=== PATIENT | female | born 1935 | race Hispanic/Latino ===

== ENCOUNTER 2017-07-20 22:36 | Emergency (ER) | payer SELFPAY ==
--- NOTE | 2017-07-20 23:13 | ED PDOC ---
HPI: Psych/Substance Abuse Time Seen by Provider: 07/20/17 22:44 Chief Complaint (Nursing): Psychiatric Evaluation Chief Complaint (Provider): Psychiatric Evaluation History Per: Patient, EMS History/Exam Limitations: no limitations Onset/Duration Of Symptoms: Mins (prior to arrival ) Current Symptoms Are (Timing): Still Present Additional Complaint(s): 81 year old female was brought in by EMS for psychiatric evaluation, onset minutes prior to arrival. Patient was sent from [facility] after she was found smoking in her room. She then tried to hide herself in the bathroom and had to be forcibly extricated by EMS. Patient refuses to talk about the incident and currently has no complaints. PMD: Dr. Stone Moses MD Past Medical History Reviewed: Historical Data, Nursing Documentation, Vital Signs Vital Signs: Last Vital Signs Temp 98.0 F 07/20/17 22:40 Pulse 96 H 07/20/17 22:40 Resp 16 07/20/17 22:40 BP 164/94 H 07/20/17 22:40 Pulse Ox 100 07/20/17 22:40 - Medical History PMH: No Chronic Diseases - Surgical History Surgical History: No Surg Hx - Family History Family History: States: Unknown Family Hx - Home Medications Home Medications: Ambulatory Orders Medication Instructions Recorded Ciprofloxacin [Cipro] 500 mg PO BID 5 Days tab 07/21/17 - Allergies Allergies/Adverse Reactions: Allergies Allergy/AdvReac Type Severity Reaction Status Date / Time cortisone Allergy RASH Verified 07/20/17 22:43 mustard Allergy RASH Uncoded 07/20/17 22:43 Review of Systems ROS Statement: Except As Marked, All Systems Reviewed And Found Negative Physical Exam - Reviewed Nursing Documentation Reviewed: Yes Vital Signs Reviewed: Yes - Physical Exam Appears: Positive for: Non-toxic, No Acute Distress Head Exam: Positive for: ATRAUMATIC, NORMOCEPHALIC Skin: Positive for: Normal Color, Warm, Dry Eye Exam: Positive for: EOMI, Normal appearance, PERRL Neck: Positive for: Normal, Painless ROM, Supple Cardiovascular/Chest: Positive for: Regular Rate, Rhythm. Negative for: Murmur Respiratory: Positive for: Normal Breath Sounds. Negative for: Respiratory Distress Gastrointestinal/Abdominal: Positive for: Normal Exam, Soft Back: Positive for: Normal Inspection Extremity: Positive for: Normal ROM. Negative for: Deformity Neurologic/Psych: Positive for: Alert, degree clerk II-XII (intact), Oriented (x 3). Negative for: Motor/Sensory Deficits, Cerebellar Tests - Laboratory Results Result Diagrams: 07/20/17 23:23 07/20/17 23:23 - ECG O2 Sat by Pulse Oximetry: 100 (RA) Pulse Ox Interpretation: Normal Medical Decision Making Medical Decision Making: Time: 22:53 Impression: adjustment disorder Initial Plan: --Acetaminophen --Alcohol serum --BMP --Urine drug --Salicylate --CBC with differentials --urinalysis --Cipro 500 mg PO Patient was cleared by crisis by Dr. Jim. Diagnosed with adjustment disorder. Patient requires no further treatment in the ED at this time. Will be discharged home. Return if symptoms persist or worsen. Scribe Attestation: Documented by Yasemin Myrick, acting as a scribe for Joshua Lambert MD. Provider Scribe Attestation: All medical record entries made by the Scribe were at my direction and personally dictated by me. I have reviewed the chart and agree that the record accurately reflects my personal performance of the history, physical exam, medical decision making, and the department course for this patient. I have also personally directed, reviewed, and agree with the discharge instructions and disposition. Disposition - Clinical Impression Clinical Impression: UTI (urinary tract infection), Adjustment disorder - Patient ED Disposition Is Patient to be Admitted: No - Disposition Referrals: Mary Vaughn [Outside] Disposition: Routine/Home Disposition Time: 00:46 Condition: IMPROVED Prescriptions: Ciprofloxacin [Cipro] 500 mg PO BID 5 Days tab Instructions: Urinary Tract Infection in Women (GEN), Mood Disorders (ED) Forms: LessThan3 (Filipino)
[2017-07-20 23:27] LABS: BASO # 0.1 K/uL (0.0-0.2); BASO % 1.2 % (0.0-2.0); EOS # 0.1 K/uL (0.0-0.7); EOS % 1.7 % (0.0-4.0); HEMOGLOBIN 13.1 g/dL (12.0-16.0); LYMPH # 1.5 K/uL (1.0-4.3); MEAN CELL VOLUME 99.8 fl (81.0-99.0); MEAN CORPUSCULAR HEMOGLOBIN 32.9 pg (27.0-31.0); MEAN PLATELET VOLUME 8.4 fl (7.2-11.7); MONO # 0.8 K/uL (0.0-0.8); MONO % 9.7 % (0.0-10.0); NEUT # 5.5 K/uL (1.8-7.0); NEUT % 68.4 % (50.0-75.0); NRBC % 0.1 % (0.0-0.0); RBC 3.99 Mil/uL (3.80-5.20); RED CELL DISTRIBUTION WIDTH 16.3 % (11.5-14.5)
[2017-07-20 23:38] LABS: ACETAMINOPHEN < 10.0 ug/ml (10.0-30.0); BLOOD UREA NITROGEN 32 mg/dl (7-17); CALCIUM 10.4 mg/dL (8.4-10.2); GFR AFRICAN-AMERICAN 40; GFR NON-AFRICAN AMERICAN 33; SALICYLATE < 1.0 mg/dl
[2017-07-20 23:46] LABS: SQUAMOUS EPITHIAL 3 /hpf (0-5); URINE BACTERIA FEW (<OCC); URINE BILIRUBIN NEGATIVE (NEGATIVE); URINE BLOOD SMALL (NEGATIVE); URINE CLARITY TURBID (Clear); URINE COLOR AMBER (YELLOW); URINE GLUCOSE (UA) NEG (Normal); URINE LEUKOCYTE ESTERASE LARGE Leu/uL (Negative); URINE NITRATE NEGATIVE (NEGATIVE); URINE PROTEIN 100 mg/dL (NEGATIVE); URINE UROBILINOGEN 0.2-1.0 mg/dL (0.2-1.0); WBC CLUMPS MANY /hpf
[2017-07-20 23:54] LABS: BARBITURATES, UR NEGATIVE (NEGATIVE); BENZODIAZEPINES, UR NEGATIVE (NEGATIVE); OPIATES, UR NEGATIVE (NEGATIVE); PHENCYCLIDINE, UR NEGATIVE (NEGATIVE)
[2017-07-21 03:07] VITALS: BP 160/90; PULSE 92; RESP 17; TEMP 98.2
[2017-07-21 04:47] VITALS: O2SAT 100
== END 2017-07-21 02:00 ==
LOC: EDBD → H.ER 22:36
DX: F43.20 Adjustment disorder, unspecified (principal); N39.0 Urinary tract infection, site not specified
CPT/HCPCS: 80048; 81003; 85025; 99283; G0480

== ENCOUNTER 2017-07-21 15:00 | Inpatient (IN) | payer MEDICARE ==
--- NOTE | 2017-07-21 15:34 | ED PDOC ---
HPI: General Adult Time Seen by Provider: 07/21/17 15:10 Chief Complaint (Nursing): Altered Mental Status Chief Complaint (Provider): Altered Mental Status History Per: Patient, EMS History/Exam Limitations: no limitations Onset/Duration Of Symptoms: Days (x today) Current Symptoms Are (Timing): Still Present Recently: Seen In ED Additional History Per: Prior Records Additional Complaint(s): Ms. Ratliff is an 81 year old female, with a past medical history of dementia and mood disorder, who presents to the emergency department via EMS for aggressive behavior non-complaint with medication. Patient lives in care home. [facility] states patient is refusing to take medications including antibiotics for UTI. Patient denies any anxiety or depression, urinary symptoms or abdominal pain. Patient is not sure why she was brought here. Patient was brought in last night. Patient was found smoking in her bathroom and locked herself inside. Patient was cleared and discharged. PMD: Aurelia Past Medical History Reviewed: Historical Data, Nursing Documentation, Vital Signs Vital Signs: Last Vital Signs Temp 97.9 F 07/26/17 15:59 Pulse 64 07/26/17 15:59 Resp 18 07/26/17 15:59 BP 114/67 07/26/17 15:59 Pulse Ox 95 07/26/17 15:59 - Medical History PMH: Dementia, HTN, Hypercholesterolemia Denies: Diabetes, Hepatitis, HIV, Seizures, Sexually Transmitted Disease Other PMH: Mood disorder - Surgical History Surgical History: No Surg Hx - Family History Family History: States: Unknown Family Hx - Living Arrangements Living Arrangements: Assisted/Assist Lvng - Social History Current smoker - smoking cessation education provided: Yes (Heavy smoker) Alcohol: None Drugs: Denies - Home Medications Home Medications: Ambulatory Orders Medication Instructions Recorded Acetaminophen [Tylenol 325mg tab] 650 mg PO Q6H PRN 07/21/17 Acetaminophen [Tylenol 325mg tab] 650 mg PO Q6H PRN 07/21/17 Cholecalciferol [Vitamin D 1000 IU] 2,000 unit PO DAILY 07/21/17 Ciprofloxacin [Cipro] 500 mg PO BID 5 Days tab 07/21/17 Cyproheptadine [Periactin] 4 mg PO BID 07/21/17 Divalproex [Depakote Sprinkles] 125 mg PO DAILY 07/21/17 Docusate [Colace] 100 mg PO BID 07/21/17 Escitalopram [Lexapro] 5 mg PO DAILY 07/21/17 Famotidine [Pepcid] 20 mg PO HS 07/21/17 Ferrous Sulfate [Ferrous Sulfate] 325 mg PO QPM 07/21/17 Fluticasone/Salmeterol 250/50 1 puff IH Q12H 07/21/17 [Advair Diskus 250/50] Folic Acid [Folic Acid] 1 mg PO DAILY 07/21/17 Magnesium Hydroxide [Milk Of 30 ml PO DAILY PRN 07/21/17 Magnesia] Simvastatin [Simvastatin] 10 mg PO HS 07/21/17 amLODIPine [Norvasc] 10 mg PO DAILY 07/21/17 - Allergies Allergies/Adverse Reactions: Allergies Allergy/AdvReac Type Severity Reaction Status Date / Time cortisone Allergy RASH Verified 07/20/17 22:43 mustard Allergy RASH Uncoded 07/20/17 22:43 Review of Systems ROS Statement: Except As Marked, All Systems Reviewed And Found Negative Gastrointestinal: Negative for: Abdominal Pain Genitourinary Female: Negative for: Dysuria, Hematuria Psych: Negative for: Anxiety, Depression Physical Exam - Reviewed Nursing Documentation Reviewed: Yes Vital Signs Reviewed: Yes - Physical Exam Appears: Positive for: Non-toxic, In Acute Distress (psychiatric distress) Head Exam: Positive for: ATRAUMATIC Skin: Positive for: Warm, Dry Eye Exam: Positive for: EOMI, PERRL ENT: Positive for: Other (dry mucus membranes, brown stained dentition) Neck: Positive for: Painless ROM, Supple Cardiovascular/Chest: Positive for: Tachycardia. Negative for: Murmur Respiratory: Positive for: Normal Breath Sounds. Negative for: Respiratory Distress Gastrointestinal/Abdominal: Positive for: Soft. Negative for: Tenderness Back: Positive for: Normal Inspection. Negative for: Decreased ROM Extremity: Positive for: Normal ROM. Negative for: Deformity Lymphatic: Negative for: Adenopathy Neurologic/Psych: Positive for: Alert, Oriented (x2), Mood/Affect (normal mood, anxious and easily agitated affect), Other (pressured speech and tangential thought and forgetfullness). Negative for: Motor/Sensory Deficits, Aphasia, Facial Droop - Laboratory Results Result Diagrams: 07/25/17 06:15 07/25/17 06:15 - ECG ECG: Positive for: Interpreted By Me ECG Rhythm: Positive for: Sinus Rhythm, Nonspecific Changes O2 Sat by Pulse Oximetry: 98 (RA) Pulse Ox Interpretation: Normal Medical Decision Making Medical Decision Making: Time: 15:17 Impression(s): UTI, Dementia, Dehydration Differentials include, not limited to: Sepsis, Electrolyte abnormalities, Decompensating Mood Disorder Plan: - EKG - CMP - Lactic Acid, Plasma Stat - Magnesium Stat - Phosphorous Stat - Thyroid Stimulating Hormone Stat - Crisis Evaluation - CBC - Blood Culture - Urine Culture - Urinalysis Accession No. : [id number] Patient Name / ID : SEGUNDO Zabala / [id number] Exam Date : 07/21/2017 16:30:33 ( Approved ) Study Comment : Sex / Age : F / 81Y Creator : Blily Muir MD Dictator : Billy Muir MD Picker Operator : [employer] Social Worker : Billy Muir MD Approver2 : Report Date : 07/21/2017 17:17:56 My Comment : HISTORY: Admission. COMPARISON: No prior. FINDINGS: LUNGS: No active pulmonary disease. PLEURA: No significant pleural effusion identified, no pneumothorax apparent. CARDIOVASCULAR: No radiographic findings to suggest acute or significant cardiovascular disease. OSSEOUS STRUCTURES: No significant abnormalities. VISUALIZED UPPER ABDOMEN: Normal. OTHER FINDINGS: None. IMPRESSION: No active disease. Evaluted by TEODORO Morris who dw Dr Moeller. Pt to be hospitalized to [facility], pending discussion with patient's POA. When CW d/w POA, POA refused to come in to sign paperwork. Pt placed on medical service for UTI, altered mental status, and dehydration, with inpatient psychiatric consult. Scribe Attestation: Documented by Mode Taylor, acting as a scribe for Opal Wells MD. Provider Scribe Attestation: All medical record entries made by the Scribe were at my direction and personally dictated by me. I have reviewed the chart and agree that the record accurately reflects my personal performance of the history, physical exam, medical decision making, and the department course for this patient. I have also personally directed, reviewed, and agree with the discharge instructions and disposition. Disposition - Clinical Impression Clinical Impression: Dehydration, UTI (urinary tract infection), Altered mental status, MARIO (acute kidney injury) Discussed With DrEdita: Troy Suazo Doctor Will See Patient In The: Hospital - Disposition Disposition Time: 22:00 Condition: FAIR - Pt Status Changed To: Hospital Disposition Of: Observation - POA Present On Arrival: None
[2017-07-21 15:56] LABS: BASO # 0.1 K/uL (0.0-0.2); BASO % 0.8 % (0.0-2.0); EOS % 0.2 % (0.0-4.0); HEMOGLOBIN 12.8 g/dL (12.0-16.0); LYMPH # 0.7 K/uL (1.0-4.3); LYMPH % 8.5 % (20.0-40.0); MEAN CELL VOLUME 100.5 fl (81.0-99.0); MEAN CORPUSCULAR HEMOGLOBIN 32.7 pg (27.0-31.0); MEAN CORPUSCULAR HGB CONC 32.5 g/dL (33.0-37.0); MEAN PLATELET VOLUME 7.9 fl (7.2-11.7); MONO # 0.6 K/uL (0.0-0.8); MONO % 6.5 % (0.0-10.0); NEUT # 7.4 K/uL (1.8-7.0); PLATELET COUNT 261 K/uL (130-400); RBC 3.91 Mil/uL (3.80-5.20); RED CELL DISTRIBUTION WIDTH 16.3 % (11.5-14.5); WHITE BLOOD COUNT 8.8 K/uL (4.8-10.8)
[2017-07-21 16:39] LABS: ALB/GLOB RATIO 1.2 (1.0-2.1); ALBUMIN 4.3 g/dL (3.5-5.0); CALCIUM 10.7 mg/dL (8.4-10.2)
--- NOTE | 2017-07-21 17:19 | RAD ---
HISTORY: Admission. COMPARISON: No prior. FINDINGS: LUNGS: No active pulmonary disease. PLEURA: No significant pleural effusion identified, no pneumothorax apparent. CARDIOVASCULAR: No radiographic findings to suggest acute or significant cardiovascular disease. OSSEOUS STRUCTURES: No significant abnormalities. VISUALIZED UPPER ABDOMEN: Normal. OTHER FINDINGS: None. IMPRESSION: No active disease.
[2017-07-21] MEDS ORDERED: Sodium Chloride 0.9% 500 ML IV STA (17:26)
[2017-07-21 18:19] LABS: BANDS 6 % (0-2); BASOPHIL 1 % (0-2); LYMPHOCYTE 10 % (20-50); MONOCYTE 8 % (0-10); NEUTROPHIL 75 % (42-75); TOTAL CELLS COUNTED 100
[2017-07-21 18:20] LABS: ANISOCYTOSIS SLIGHT; LARGE PLATELETS PRESENT; PLATELET ESTIMATE NORMAL (NORMAL)
[2017-07-21 18:31] LABS: SQUAMOUS EPITHIAL 1 /hpf (0-5); URINE BACTERIA RARE (<OCC); URINE BILIRUBIN NEGATIVE (NEGATIVE); URINE BLOOD NEGATIVE (NEGATIVE); URINE CLARITY CLOUDY (Clear); URINE COLOR YELLOW (YELLOW); URINE GLUCOSE (UA) NEG (Normal); URINE HYALINE CAST 0-2 /hpf (0-2); URINE LEUKOCYTE ESTERASE MOD Leu/uL (Negative); URINE NITRATE NEGATIVE (NEGATIVE); URINE PROTEIN 100 mg/dL (NEGATIVE); URINE UROBILINOGEN 0.2-1.0 mg/dL (0.2-1.0)
[2017-07-22] MEDS ORDERED: Magnesium Hydroxide Susp 30 ml UD PO PRN (05:55)
[2017-07-22] MEDS ORDERED: Enoxaparin 30 mg Syringe SC SCH (09:00)
[2017-07-22 09:01] LABS: HEMOGLOBIN 12.3 g/dL (12.0-16.0); MEAN CELL VOLUME 100.1 fl (81.0-99.0); MEAN CORPUSCULAR HEMOGLOBIN 33.3 pg (27.0-31.0); MEAN CORPUSCULAR HGB CONC 33.2 g/dL (33.0-37.0); RBC 3.7 Mil/uL (3.80-5.20); RED CELL DISTRIBUTION WIDTH 16.4 % (11.5-14.5); WHITE BLOOD COUNT 6.4 K/uL (4.8-10.8)
[2017-07-22] MEDS: Divalproex 125 mg Sprinkle Capsule PO SCH (09:06)
[2017-07-22] MEDS: Cholecalciferol 1,000 INTLU TAB PO SCH (09:06)
[2017-07-22 09:31] LABS: ALB/GLOB RATIO 1.1 (1.0-2.1); ALBUMIN 3.8 g/dL (3.5-5.0); CALCIUM 10.1 mg/dL (8.4-10.2)
--- NOTE | 2017-07-22 11:24 | CARD ---
APPROVED REPORT EKG Measurement Heart [id number] <Conclusion> Normal sinus rhythm Minimal voltage criteria for LVH, may be normal variant Nonspecific ST and T wave abnormality Prolonged QT Abnormal ECG
--- NOTE | 2017-07-22 11:44 | CP.PCM.CON ---
History of Present Illness - History of Present Illness History of Present Illness: Psychiatry consult note CC: "I'm okay." HPI: 81 yo female, resident of [facility], was sent from her care home w/ acute agitation in the context of a UTI. Patient is currently calm with senior copywriter, denies depression/anxiety/AH/VH/SI/HI. She does not have any acute psychiatric complaints and does not think she needs psychiatric admission. A + O x 3. Denies ideation to harm others. PMHx: UTI, HTN, Anemia, Asthma, Renal Insufficiency PPHx: H/o Dementia and mood disorder ALL: Cortisone, Mustard SHx: Resident of [facility]. Denies drugs/etoh; smokes 1PPD MSE: A + O x 3, calm, cooperative, good eye contact, mood "okay", affect- neutral, speech normal, NO AH/VH/SI/HI, no delusions, thought process- coherent/ linear; limited I/J due to chronic dementia Impression: 81 yo female w/ Dementia and mood disorder, now calm and cooperative w/o acute psychiatric complaints. Patient's behavioral disturbance is likely due to acute UTI. -Continue Lexapro 5 mg PO Daily -Continue Depakote 125 mg PO Daily; if patient continues to have behavioral disturbances, can increase Depakote to 125 mg PO BID and check VPA level -No acute inpatient psychiatric admission indicated at this time -Avoid benzodiazepines as they can worsen confusion in the elderly and increase risks of falls -If patient becomes acutely agitated and needs IM medication, can given Haldol 0.5 mg IM q6hr PRN agitation Past Patient History - Past Medical History & Family History Past Medical History?: Yes - Past Social History Smoking Status: Current Some Days Smoker - CARDIAC Hx Cardiac Disorders: Yes (HTN, high cholesterol) - PULMONARY Hx Respiratory Disorders: Yes (COPD) - NEUROLOGICAL Hx Neurological Disorder: No - HEENT Hx HEENT Problems: No - RENAL Hx Chronic Kidney Disease: No - ENDOCRINE/METABOLIC Hx Endocrine Disorders: No - HEMATOLOGICAL/ONCOLOGICAL Hx Blood Disorders: No - INTEGUMENTARY Hx Dermatological Problems: No - MUSCULOSKELETAL/RHEUMATOLOGICAL Hx Musculoskeletal Disorders: No Hx Falls: No - GENITOURINARY/GYNECOLOGICAL Hx Genitourinary Disorders: No - PSYCHIATRIC Hx Psychophysiologic Disorder: Yes (dementia, mood disorder) - SURGICAL HISTORY Other/Comment: pt denies angélica surgeries - ANESTHESIA Hx Anesthesia: No Meds Allergies/Adverse Reactions: Allergies Allergy/AdvReac Type Severity Reaction Status Date / Time cortisone Allergy RASH Verified 07/20/17 22:43 mustard Allergy RASH Uncoded 07/20/17 22:43 - Medications Medications: Current Medications Acetaminophen (Tylenol 325mg Tab) 650 mg PO Q6H PRN PRN Reason: Temp >101 Acetaminophen (Tylenol 325mg Tab) 650 mg PO Q6H PRN PRN Reason: Pain, Mild (1-3) Amlodipine Besylate (Norvasc) 10 mg PO DAILY [facility] Last Admin: 07/22/17 09:12 Dose: 10 mg Cholecalciferol (Vitamin D) 2,000 intlu PO DAILY [facility] Last Admin: 07/22/17 09:06 Dose: 2,000 intlu Cyproheptadine HCl (Periactin) 4 mg PO BID [facility] Last Admin: 07/22/17 09:06 Dose: 4 mg Divalproex Sodium (Depakote Sprinkles) 125 mg PO DAILY [facility] Last Admin: 07/22/17 09:06 Dose: 125 mg Docusate Sodium (Colace) 100 mg PO BID [facility] Last Admin: 07/22/17 09:06 Dose: 100 mg Escitalopram Oxalate (Lexapro) 5 mg PO DAILY [facility] Last Admin: 07/22/17 09:06 Dose: 5 mg Famotidine (Pepcid) 20 mg PO HS [facility] Ferrous Sulfate (Feosol) 325 mg PO QPM [facility] Folic Acid (Folic Acid) 1 mg PO DAILY [facility] Last Admin: 07/22/17 09:11 Dose: 1 mg Heparin Sodium (Porcine) (Heparin) 5,000 units SC Q12 [facility] PRN Reason: Protocol Ciprofloxacin (Cipro 400mg/200ml Dsw) 400 mg in 200 mls @ 200 mls/hr IVPB Q12 [facility] PRN Reason: Protocol Magnesium Hydroxide (Milk Of Magnesia) 30 ml PO DAILY PRN PRN Reason: Constipation Pravastatin Sodium (Pravachol) 20 mg PO HS [facility] Fluticasone/Salmeterol (Advair Diskus 250/50) 1 puff IH Q12H [facility] Results - Vital Signs Recent Vital Signs: Last Vital Signs Temp 97.3 F L 07/22/17 03:31 Pulse 77 02/02/18 09:12 Resp 18 07/22/17 03:31 BP 130/66 07/22/17 09:12 Pulse Ox 94 L 07/22/17 03:31 - Labs Result Diagrams: 07/22/17 08:55 07/22/17 08:55 Labs: Laboratory Results - last 24 hr 07/21/17 07/21/17 07/21/17 15:45 15:45 15:45 WBC 8.8 RBC 3.91 Hgb 12.8 Hct 39.3 MCV 100.5 H MCH 32.7 H MCHC 32.5 L RDW 16.3 H Plt Count 261 MPV 7.9 Neut % (Auto) 84.0 H Lymph % (Auto) 8.5 L [place] % (Auto) 6.5 Eos % (Auto) 0.2 Baso % (Auto) 0.8 Neut # (Auto) 7.4 H Lymph # (Auto) 0.7 L [place] # (Auto) 0.6 Eos # (Auto) 0.0 Baso # (Auto) 0.1 Neutrophils % (Manual) 75 Band Neutrophils % 6 H Lymphocytes % (Manual) 10 L Monocytes % (Manual) 8 Basophils % (Manual) 1 Platelet Estimate Normal Large Platelets Present Anisocytosis (manual) Slight Macrocytosis (manual) Slight Sodium 145 Potassium 4.0 Chloride 106 Carbon Dioxide 24 Anion Gap 19 BUN 40 H Creatinine 1.9 H Est GFR ( Amer) 31 Est GFR (Non-Af Amer) 25 Random Glucose 157 H Lactic Acid 1.6 Calcium 10.7 H Phosphorus 3.5 Magnesium 2.0 Total Bilirubin 0.9 AST 18 ALT 23 Alkaline Phosphatase 59 Total Protein 7.9 Albumin 4.3 Globulin 3.5 Albumin/Globulin Ratio 1.2 Triglycerides Cholesterol LDL Cholesterol Direct HDL Cholesterol Vitamin B12 TSH 3rd Generation 3.40 Urine Color Urine Clarity Urine pH Ur Specific Desha Urine Protein Urine Glucose (UA) Urine Ketones Urine Blood Urine Nitrate Urine Bilirubin Urine Urobilinogen Ur Leukocyte Esterase Urine RBC (Auto) Urine Microscopic WBC Ur Squamous Epith Cells Urine Bacteria Hyaline Casts Valproic Acid 07/21/17 07/21/17 07/22/17 15:45 18:00 08:55 WBC 6.4 RBC 3.70 L Hgb 12.3 Hct 37.0 MCV 100.1 H MCH 33.3 H MCHC 33.2 RDW 16.4 H Plt Count 224 MPV Neut % (Auto) Lymph % (Auto) [place] % (Auto) Eos % (Auto) Baso % (Auto) Neut # (Auto) Lymph # (Auto) [place] # (Auto) Eos # (Auto) Baso # (Auto) Neutrophils % (Manual) Band Neutrophils % Lymphocytes % (Manual) Monocytes % (Manual) Basophils % (Manual) Platelet Estimate Large Platelets Anisocytosis (manual) Macrocytosis (manual) Sodium Potassium Chloride Carbon Dioxide Anion Gap BUN Creatinine Est GFR ( Amer) Est GFR (Non-Af Amer) Random Glucose Lactic Acid Calcium Phosphorus Magnesium Total Bilirubin AST ALT Alkaline Phosphatase Total Protein Albumin Globulin Albumin/Globulin Ratio Triglycerides Cholesterol LDL Cholesterol Direct HDL Cholesterol Vitamin B12 TSH 3rd Generation Urine Color Yellow Urine Clarity Cloudy Urine pH 6.0 Ur Specific Desha 1.017 Urine Protein 100 Urine Glucose (UA) Neg Urine Ketones Trace Urine Blood Negative Urine Nitrate Negative Urine Bilirubin Negative Urine Urobilinogen 0.2-1.0 Ur Leukocyte Esterase Mod Urine RBC (Auto) 1 Urine Microscopic WBC 16 H Ur Squamous Epith Cells 1 Urine Bacteria Rare Hyaline Casts 0-2 Valproic Acid < 10.0 L 07/22/17 08:55 WBC RBC Hgb Hct MCV MCH MCHC RDW Plt Count MPV Neut % (Auto) Lymph % (Auto) [place] % (Auto) Eos % (Auto) Baso % (Auto) Neut # (Auto) Lymph # (Auto) [place] # (Auto) Eos # (Auto) Baso # (Auto) Neutrophils % (Manual) Band Neutrophils % Lymphocytes % (Manual) Monocytes % (Manual) Basophils % (Manual) Platelet Estimate Large Platelets Anisocytosis (manual) Macrocytosis (manual) Sodium 146 Potassium 4.1 Chloride 109 H Carbon Dioxide 26 Anion Gap 15 BUN 38 H Creatinine 1.4 H Est GFR ( Amer) 44 Est GFR (Non-Af Amer) 36 Random Glucose 93 Lactic Acid Calcium 10.1 Phosphorus Magnesium Total Bilirubin 0.9 AST 21 ALT 21 Alkaline Phosphatase 50 Total Protein 7.2 Albumin 3.8 Globulin 3.4 Albumin/Globulin Ratio 1.1 Triglycerides 64 Cholesterol 157 LDL Cholesterol Direct 85 HDL Cholesterol 48 Vitamin B12 432 TSH 3rd Generation 1.43 Urine Color Urine Clarity Urine pH Ur Specific Desha Urine Protein Urine Glucose (UA) Urine Ketones Urine Blood Urine Nitrate Urine Bilirubin Urine Urobilinogen Ur Leukocyte Esterase Urine RBC (Auto) Urine Microscopic WBC Ur Squamous Epith Cells Urine Bacteria Hyaline Casts Valproic Acid
[2017-07-22] MEDS: Ciprofloxacin 400mg/200ml D5W 400 MG/200 ML BAG IVPB SCH ×2 (11:59→21:20)
[2017-07-22] MEDS: Dextrose 5%/0.45% NS 1,000 ML IV SCH (14:40)
[2017-07-22] MEDS: Fluticasone-Salmeterol 250-50mcg Diskus IH SCH (19:06)
[2017-07-22] MEDS: Pravastatin Sodium 20 MG TAB PO SCH (21:26)
[2017-07-23 07:10] LABS: HEMOGLOBIN 11.9 g/dL (12.0-16.0); MEAN CORPUSCULAR HEMOGLOBIN 33.1 pg (27.0-31.0); MEAN CORPUSCULAR HGB CONC 32.8 g/dL (33.0-37.0); RBC 3.6 Mil/uL (3.80-5.20); RED CELL DISTRIBUTION WIDTH 16.3 % (11.5-14.5); WHITE BLOOD COUNT 6.1 K/uL (4.8-10.8)
[2017-07-23 07:17] LABS: CALCIUM 9.7 mg/dL (8.4-10.2)
[2017-07-23] MEDS: Fluticasone-Salmeterol 250-50mcg Diskus IH SCH ×2 (07:39→17:14)
[2017-07-23] MEDS: Ciprofloxacin 400mg/200ml D5W 400 MG/200 ML BAG IVPB SCH (09:17)
[2017-07-23] MEDS: Cholecalciferol 1,000 INTLU TAB PO SCH (09:20)
--- NOTE | 2017-07-23 09:34 | ED ---
CHIEF COMPLAINT: Altered mental status. HISTORY OF PRESENT ILLNESS: This is an 81-year-old female known case of dementia, hypertension, and elevated cholesterol, who was very noncompliant with her medications in long term and became very aggressive, so the patient was sent to Emergency Room and was admitted for further management. The patient is not able to provide informative history. REVIEW OF SYSTEMS: Available review of systems is negative for her headache, dizziness, syncope, loss of consciousness, chest pain, shortness of breath, nausea, vomiting, diarrhea, constipation or any urinary or GI symptoms. Review of systems is positive for aggressive behavior and altered mental status. Review of systems of all other organ system is unremarkable and unreliable as the patient is not a good historian. PAST MEDICAL HISTORY: Significant for elevated cholesterol, hypertension, and dementia. The patient is a long term resident. PAST SURGICAL HISTORY: Unremarkable. PERSONAL HISTORY: The patient is currently living in long term, nonsmoker, nondrinker, no substance abuse. MEDICATIONS: The patient is on multiple medications including Tylenol, vitamin D, Cipro, Periactin, Depakote, Colace, Lexapro, Pepcid, iron, Advair, folic acid, magnesium, milk of magnesia, simvastatin, amlodipine, all the other as mentioned earlier. The patient is very noncompliant with medication. ALLERGIES: THE PATIENT IS NOT ALLERGIC TO ANY MEDICATIONS. FAMILY HISTORY: Noncontributory. PHYSICAL EXAMINATION: GENERAL: A well-built, well-nourished, pale elderly female, in no acute distress. VITAL SIGNS: Temperature 98.3, pulse 76, respirations 20, blood pressure 116/72, and saturations 100%. HEENT: Pupils reacting to light. No JVD. No thyromegaly. No lymphadenopathy. No nystagmus. Normocephalic and atraumatic skull. HEART: S1 and S2, normal and regular. No significant murmur, gallop or rub is heard. LUNGS: Exam shows good bilateral air exchange. No rales or rhonchi. ABDOMEN: Soft and nontender. No organomegaly. No fluid. Bowel sounds are present and normal. EXTREMITIES: No edema. No calf swelling. No tenderness. No acute ischemia. CENTRAL NERVOUS SYSTEM: The patient is awake, responsive, and conversant . There is no sign of any acute gross focal motor or sensory neurological deficits. LABORATORY DATA: Available diagnostic data is reviewed. Urinalysis and urine pictures show gram-negative rods. Blood cultures remains negative. WBC 6.4, hemoglobin 12.3, hematocrit 37, and platelets 224. Sodium 146, potassium 4.1, chloride 109, bicarb 26, BUN 38, and creatinine 1.4, earlier BUN was 40 and creatinine was 1.9. ADMITTING IMPRESSION: Altered mental status, dehydration, urinary tract infection, hypertension, elevated cholesterol, and dementia. PLAN: As ordered. Psychiatric consult noted and appreciated. Troy Suazo MD
[2017-07-23] MEDS: Dextrose 5%/0.45% NS 1,000 ML IV SCH ×2 (11:19→13:32)
[2017-07-23] MEDS: Divalproex 125 mg Sprinkle Capsule PO SCH (11:20)
[2017-07-23] MEDS: Meropenem 500 MG in Sodium Chloride 0.9% 100 ML IVPB SCH ×2 (13:31→21:05)
[2017-07-23] MEDS: Pravastatin Sodium 20 MG TAB PO SCH (21:05)
[2017-07-24] MEDS: Fluticasone-Salmeterol 250-50mcg Diskus IH SCH ×2 (05:11→17:00)
[2017-07-24] MEDS: Meropenem 500 MG in Sodium Chloride 0.9% 100 ML IVPB SCH ×3 (05:11→21:23)
[2017-07-24 07:02] LABS: HEMOGLOBIN 11.7 g/dL (12.0-16.0); MEAN CELL VOLUME 100.9 fl (81.0-99.0); MEAN CORPUSCULAR HEMOGLOBIN 32.8 pg (27.0-31.0); MEAN CORPUSCULAR HGB CONC 32.5 g/dL (33.0-37.0); RBC 3.57 Mil/uL (3.80-5.20); RED CELL DISTRIBUTION WIDTH 16.2 % (11.5-14.5); WHITE BLOOD COUNT 5.9 K/uL (4.8-10.8)
[2017-07-24 07:14] LABS: ALBUMIN 3.2 g/dL (3.5-5.0); CALCIUM 9.4 mg/dL (8.4-10.2)
[2017-07-24] MEDS: Divalproex 125 mg Sprinkle Capsule PO SCH (09:40)
[2017-07-24] MEDS: Cholecalciferol 1,000 INTLU TAB PO SCH (09:42)
[2017-07-24] MEDS: Dextrose 5%/0.45% NS 1,000 ML IV SCH (09:47)
--- NOTE | 2017-07-24 11:06 | PN ---
DATE: 07/24/2017 SUBJECTIVE: The patient is seen and examined. Interim events noted. The patient remains on one-to-one observation for safety. We check this visit followup and interventions noted and appreciated. The patient had ESBL in urine. The patient feels okay. Denies having specific complaints, cough, , but confused. No chest pain and no shortness of breath. No urinary symptoms. . No issue reported by nursing staff. PHYSICAL EXAMINATION: GENERAL: The patient is in no acute distress. VITAL SIGNS: Stable. HEART: S1 and S2, normal and regular. LUNGS: Good bilateral air exchange. ABDOMEN: Soft and nontender. EXTREMITIES: No edema. No calf swelling. No tenderness. No acute ischemia. CENTRAL NERVOUS SYSTEM: Exam is essentially unchanged. DIAGNOSTIC DATA: Available diagnostic data reviewed. ASSESSMENT AND PLAN: The patient has extended-spectrum beta-lactamase organism in urine culture. Plan as ordered. Troy Suazo MD
--- NOTE | 2017-07-24 13:27 | CP.PCM.CON ---
History of Present Illness - History of Present Illness History of Present Illness: 81 yo female, resident of [facility], was sent from her custodial w/ acute agitation in the context of a UTI. 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 she c/o back pain and was found to have ESBL + urine c/s PMHx: UTI, HTN, Anemia, Asthma, Renal Insufficiency PPHx: H/o Dementia and mood disorder ALL: Cortisone, Mustard SHx: Resident of [facility]. Denies drugs/etoh; smokes 1PPD Review of Systems - Review of Systems All systems: reviewed and no additional remarkable complaints except - Constitutional Constitutional: As Per HPI - EENT Eyes: absent: As Per HPI, Blind Spots, Blurred Vision, Change in Vision, Decreased Night Vision, Diplopia, Discharge, Dry Eye, Exophthalmos, Floaters, Irritation, Itchy Eyes, Loss of Peripheral Vision, Pain, Photophobia, Requires Corrective Lenses, Sees Flashes, Spots in Vision, Tunnel Vision, Other Visual Disturbances, Loss of Vision, Other Ears: absent: As Per HPI, Decreased Hearing, Ear Discharge, Ear Pain, Tinnitus, Abnormal Hearing, Disequilibrium, Dizziness, Other Nose/Mouth/Throat: absent: As Per HPI, Epistaxis, Nasal Congestion, Nasal Discharge, Nasal Obstruction, Nasal Trauma, Nose Pain, Post Nasal Drip, Sinus Pain, Sinus Pressure, Bleeding Gums, Change in Voice, Dental Pain, Dry Mouth, Dysphagia, Halitosis, Hoarsness, Lip Swelling, Mouth Lesions, Mouth Pain, Odynophagia, Sore Throat, Throat Swelling, Tongue Swelling, Facial Pain, Neck Pain, Neck Mass, Other - Breasts Breasts: absent: As Per HPI, Change in Shape, Mass, Pain, Nipple Discharge, Nipple Inversion, Skin Changes, Swelling, Other - Cardiovascular Cardiovascular: absent: As Per HPI, Acrocyanosis, Chest Pain, Chest Pain at Rest , Chest Pain with Activity, Claudication, Diaphoresis, Dyspnea, Dyspnea on Exertion, Edema, Irregular Heart Rhythm, Pain Radiating to Arm/Neck/Jaw, Leg Edema, Leg Ulcers, Lightheadedness, Orthopnea, Palpitations, Paroxysmal Nocturnal Dyspnea, Pedal Edema, Radiating Pain, Rapid Heart Rate, Slow Heart Rate, Syncope, Other - Respiratory Respiratory: absent: As Per HPI, Cough, Dyspnea, Hemoptysis, Dyspnea on Exertion , Wheezing, Snoring, Stridor, Pain on Inspiration, Chest Congestion, Excessive Mucous Production, Change in Mucous Color, Pain with Coughing, Other - Gastrointestinal Gastrointestinal: absent: As Per HPI, Abdominal Pain, Belching, Bloating, Change in Bowel Habits, Change in Stool Character, Coffee Ground Emesis, Constipation, Cramping, Diarrhea, Dyspepsia, Dysphagia, Early Satiety, Excessive Flatus, Fecal Incontinence, Heartburn, Hematemesis, Hematochezia, Loose Stools, Melena, Nausea, Odynophagia, Temesmus, Vomiting, Other - Genitourinary Genitourinary: As Per HPI - Reproductive: Female Reproductive:Female: absent: As Per HPI, Amenorrhea, Amenorrhea/ Control, Currently Menstual, Cycle <21 Days, Cycle >35 Days, Cycle Variable, Menses 1-7 Days, Menses >/= 8 Days, Menses Variable, Cycle > 4 Weeks Between, No Menses for 6 Months, Heavy Menses, Light Menses, Normal Menses, Spotting Between Cycles , S/P Hysterectomy, Menopausal, Post Menopausal, Premenarche, Abnormal Vaginal Bleeding, Dysmenorrhea, Dyspareunia, Genital Lesions, Genital Pruritis, Pelvic Pain, Prolapse Symptoms, Sexual Dysfunction, Vaginal Discharge, Vaginal Dryness , Vaginal Odor, Vaginal Pruritis, Other - Menstruation Menstruation: absent: As Per HPI, Amenorrhea, Amenorrhea/ Control, Currently Menstual, Cycle <21 Days, Cycle >35 Days, Cycle Variable, Menses 1-7 Days, Menses >/= 8 Days, Menses Variable, Cycle > 4 Weeks Between, No Menses for 6 Months, Heavy Menses, Light Menses, Normal Menses, Spotting Between Cycles , S/P Hysterectomy, Menopausal, Post Menopausal, Premenarche, Abnormal Vaginal Bleeding, Dysmenorrhea, Other - Musculoskeletal Musculoskeletal: As Per HPI - Integumentary Integumentary: absent: As Per HPI, Acne, Alopecia, Bleeding Lesions, Change in Hair, Change in Nails, Change in Pigmentation, Changing Lesions, Dry Skin, Erythema, Furuncle, Hirsutism, Lesions, New Lesions, Non-Healing Lesions, Photosensitivity, Pruritus, Rash, Skin Pain, Skin Ulcer, Sores, Striae, Swelling , Unusual Bruising, Wounds, Jaundice, Other - Neurological Neurological: As Per HPI - Psychiatric Psychiatric: As Per HPI - Endocrine Endocrine: absent: As Per HPI, Change in Body Appearance, Change in Libido, Cold Intolorance, Deepening of Voice, Excessive Sweating, Fatigue, Flushing, Heat Intolorance, Increase in Ring/Shoe/Hat Size, Palpitations, Polydipsia, Polyphagia, Polyuria, Other - Hematologic/Lymphatic Hematologic: absent: As Per HPI, Easy Bleeding, Easy Bruising, Lymphadenopathy, Other Past Patient History - Past Medical History & Family History Past Medical History?: Yes - Past Social History Smoking Status: Current Some Days Smoker - CARDIAC Hx Cardiac Disorders: Yes (HTN, high cholesterol) - PULMONARY Hx Respiratory Disorders: Yes (COPD) - NEUROLOGICAL Hx Neurological Disorder: No - HEENT Hx HEENT Problems: No - RENAL Hx Chronic Kidney Disease: No - ENDOCRINE/METABOLIC Hx Endocrine Disorders: No - HEMATOLOGICAL/ONCOLOGICAL Hx Blood Disorders: No - INTEGUMENTARY Hx Dermatological Problems: No - MUSCULOSKELETAL/RHEUMATOLOGICAL Hx Musculoskeletal Disorders: No Hx Falls: No - GENITOURINARY/GYNECOLOGICAL Hx Genitourinary Disorders: No - PSYCHIATRIC Hx Psychophysiologic Disorder: Yes (dementia, mood disorder) - SURGICAL HISTORY Other/Comment: pt denies angélica surgeries - ANESTHESIA Hx Anesthesia: No Meds Allergies/Adverse Reactions: Allergies Allergy/AdvReac Type Severity Reaction Status Date / Time cortisone Allergy RASH Verified 07/20/17 22:43 mustard Allergy RASH Uncoded 07/20/17 22:43 - Medications Medications: Current Medications Acetaminophen (Tylenol 325mg Tab) 650 mg PO Q6H PRN PRN Reason: Temp >101 Acetaminophen (Tylenol 325mg Tab) 650 mg PO Q6H PRN PRN Reason: Pain, Mild (1-3) Amlodipine Besylate (Norvasc) 10 mg PO DAILY [facility] Last Admin: 07/24/17 09:41 Dose: 10 mg Cholecalciferol (Vitamin D) 2,000 intlu PO DAILY [facility] Last Admin: 07/24/17 09:42 Dose: 2,000 intlu Cyproheptadine HCl (Periactin) 4 mg PO BID [facility] Last Admin: 07/24/17 09:42 Dose: 4 mg Divalproex Sodium (Depakote Sprinkles) 125 mg PO DAILY [facility] Last Admin: 07/24/17 09:40 Dose: 125 mg Docusate Sodium (Colace) 100 mg PO BID [facility] Last Admin: 07/24/17 09:39 Dose: 100 mg Escitalopram Oxalate (Lexapro) 5 mg PO DAILY [facility] Last Admin: 07/24/17 09:40 Dose: 5 mg Famotidine (Pepcid) 20 mg PO HS [facility] Last Admin: 07/23/17 21:05 Dose: 20 mg Ferrous Sulfate (Feosol) 325 mg PO QPM [facility] Last Admin: 07/23/17 17:15 Dose: 325 mg Folic Acid (Folic Acid) 1 mg PO DAILY [facility] Last Admin: 07/24/17 09:40 Dose: 1 mg Heparin Sodium (Porcine) (Heparin) 5,000 units SC Q12 [facility] PRN Reason: Protocol Last Admin: 07/24/17 09:40 Dose: 5,000 units Meropenem 500 mg/ Sodium (Chloride) 100 mls @ 100 mls/hr IVPB Q8@0500,1300, 2100 [facility] PRN Reason: Protocol Last Admin: 07/24/17 12:42 Dose: 100 mls/hr Dextrose/Sodium Chloride (Dextrose 5%/0.45% Ns 1000 Ml) 1,000 mls @ 50 mls/hr IV .Q20H [facility] Stop: 07/27/17 07:30 Last Admin: 07/24/17 09:47 Dose: 50 mls/hr Magnesium Hydroxide (Milk Of Magnesia) 30 ml PO DAILY PRN PRN Reason: Constipation Pravastatin Sodium (Pravachol) 20 mg PO [facility] Last Admin: 07/23/17 21:05 Dose: 20 mg Fluticasone/Salmeterol (Advair Diskus 250/50) 1 puff IH Q12H [facility] Last Admin: 07/24/17 05:11 Dose: 1 puff Physical Exam - Constitutional Appears: Non-toxic, Confused, Chronically Ill - Head Exam Head Exam: ATRAUMATIC, NORMAL INSPECTION, NORMOCEPHALIC - Eye Exam Eye Exam: PERRL. absent: Scleral icterus - ENT Exam ENT Exam: Mucous Membranes Dry, Normal External Ear Exam, Normal Oropharynx - Neck Exam Neck exam: Negative for: Lymphadenopathy, Thyromegaly - Respiratory Exam Respiratory Exam: Decreased Breath Sounds, Clear to Auscultation Bilateral, NORMAL BREATHING PATTERN - Cardiovascular Exam Cardiovascular Exam: REGULAR RHYTHM, +S1, +S2 - GI/Abdominal Exam GI & Abdominal Exam: Diminished Bowel Sounds, Soft. absent: Tenderness - Rectal Exam Rectal Exam: Deferred - Exam Exam: NORMAL INSPECTION - Extremities Exam Extremities exam: Positive for: pedal pulses present. Negative for: calf tenderness, pedal edema, tenderness - Back Exam Back exam: absent: CVA tenderness (L), CVA tenderness (R), paraspinal tenderness - Neurological Exam Neurological exam: Alert, Altered, CN II-XII Intact, Oriented x3, Reflexes Normal - Psychiatric Exam Psychiatric exam: Depressed - Skin Skin Exam: Dry Results - Vital Signs Recent Vital Signs: Last Vital Signs Temp 97.9 F 07/24/17 08:23 Pulse 81 07/24/17 09:41 Resp 20 07/24/17 08:23 BP 131/78 07/24/17 09:41 Pulse Ox 98 07/24/17 08:23 - Labs Result Diagrams: 07/24/17 05:30 07/24/17 05:30 Labs: Laboratory Results - last 24 hr 07/24/17 07/24/17 05:30 05:30 WBC 5.9 RBC 3.57 L Hgb 11.7 L Hct 36.0 MCV 100.9 H MCH 32.8 H MCHC 32.5 L RDW 16.2 H Plt Count 192 Sodium 143 Potassium 4.0 Chloride 106 Carbon Dioxide 29 Anion Gap 12 BUN 26 H Creatinine 1.2 Est GFR ( Amer) 52 Est GFR (Non-Af Amer) 43 Random Glucose 100 Calcium 9.4 Total Bilirubin 0.4 AST 22 ALT 15 Alkaline Phosphatase 41 Total Protein 6.4 Albumin 3.2 L Globulin 3.2 Albumin/Globulin Ratio 1.0 Assessment & Plan (1) Adjustment disorder Status: Acute (2) UTI (urinary tract infection) Status: Acute (3) ESBL (extended spectrum beta-lactamase) producing bacteria infection Status: Acute (4) Infection due to ESBL-producing Escherichia coli Status: Acute (5) Anemia Status: Acute (6) Dehydration Status: Acute (7) MARIO (acute kidney injury) Status: Acute - Assessment and Plan (Free Text) Assessment: cont iv merrem consider imaging and eval
[2017-07-24] MEDS: Pravastatin Sodium 20 MG TAB PO SCH (21:23)
[2017-07-25] MEDS: Dextrose 5%/0.45% NS 1,000 ML IV SCH (05:21)
[2017-07-25] MEDS: Meropenem 500 MG in Sodium Chloride 0.9% 100 ML IVPB SCH ×3 (05:23→22:02)
[2017-07-25] MEDS: Fluticasone-Salmeterol 250-50mcg Diskus IH SCH ×2 (05:24→17:15)
[2017-07-25 06:47] LABS: HEMOGLOBIN 12.4 g/dL (12.0-16.0); MEAN CELL VOLUME 100.7 fl (81.0-99.0); MEAN CORPUSCULAR HEMOGLOBIN 32.8 pg (27.0-31.0); MEAN CORPUSCULAR HGB CONC 32.6 g/dL (33.0-37.0); RBC 3.77 Mil/uL (3.80-5.20); RED CELL DISTRIBUTION WIDTH 16.3 % (11.5-14.5); WHITE BLOOD COUNT 6.2 K/uL (4.8-10.8)
[2017-07-25 06:59] LABS: ALB/GLOB RATIO 1.1 (1.0-2.1); ALBUMIN 3.7 g/dL (3.5-5.0); CALCIUM 9.5 mg/dL (8.4-10.2)
[2017-07-25] MEDS: Divalproex 125 mg Sprinkle Capsule PO SCH (09:24)
[2017-07-25] MEDS: Cholecalciferol 1,000 INTLU TAB PO SCH (09:24)
--- NOTE | 2017-07-25 11:02 | PN ---
DATE: 07/25/2017 SUBJECTIVE: The patient is seen and examined. Interim events noted. Consults noted and appreciated. The patient remains in regular medical floor and on one-to-one observation. The patient feels okay. Denies having specific complaints of chest pain or shortness of breath. No urinary symptoms. PHYSICAL EXAMINATION: GENERAL: The patient is in no acute distress. VITAL SIGNS: Stable. HEART: S1 and S2, normal and regular. LUNGS: Good bilateral air exchange. ABDOMEN: Soft and nontender. EXTREMITIES: No edema. No calf swelling. No tenderness. No acute ischemia. CENTRAL NERVOUS SYSTEM: Exam is essentially unchanged. DIAGNOSTIC DATA: Available diagnostic data reviewed. Urine culture shows ESBL positive. ASSESSMENT AND PLAN: consult noted and appreciated. Plan as ordered. Troy Suazo MD
--- NOTE | 2017-07-25 11:50 | CP.PCM.PN ---
Subjective - Date & Time of Evaluation Date of Evaluation: 07/25/17 Time of Evaluation: 07:00 - Subjective Subjective: renAL us ORDERED CONT IV RX ESBL Objective - Vital Signs/Intake and Output Vital Signs (last 24 hours): Temp Pulse Resp BP Pulse Ox 98 F 61 20 145/80 96 07/25/17 08:35 07/25/17 09:23 07/25/17 08:35 07/25/17 09:23 07/25/17 08:35 - Medications Medications: Current Medications Acetaminophen (Tylenol 325mg Tab) 650 mg PO Q6H PRN PRN Reason: Temp >101 Acetaminophen (Tylenol 325mg Tab) 650 mg PO Q6H PRN PRN Reason: Pain, Mild (1-3) Amlodipine Besylate (Norvasc) 10 mg PO DAILY [facility] Last Admin: 07/25/17 09:23 Dose: 10 mg Cholecalciferol (Vitamin D) 2,000 intlu PO DAILY [facility] Last Admin: 07/25/17 09:24 Dose: 2,000 intlu Cyproheptadine HCl (Periactin) 4 mg PO BID [facility] Last Admin: 07/25/17 09:23 Dose: 4 mg Divalproex Sodium (Depakote Sprinkles) 125 mg PO DAILY [facility] Last Admin: 07/25/17 09:24 Dose: 125 mg Docusate Sodium (Colace) 100 mg PO BID [facility] Last Admin: 07/25/17 09:24 Dose: 100 mg Escitalopram Oxalate (Lexapro) 5 mg PO DAILY [facility] Last Admin: 07/25/17 09:23 Dose: 5 mg Famotidine (Pepcid) 20 mg PO HS [facility] Last Admin: 07/24/17 21:23 Dose: 20 mg Ferrous Sulfate (Feosol) 325 mg PO QPM [facility] Last Admin: 07/24/17 17:00 Dose: 325 mg Folic Acid (Folic Acid) 1 mg PO DAILY [facility] Last Admin: 07/25/17 09:24 Dose: 1 mg Heparin Sodium (Porcine) (Heparin) 5,000 units SC Q12 [facility] PRN Reason: Protocol Last Admin: 07/25/17 09:23 Dose: 5,000 units Meropenem 500 mg/ Sodium (Chloride) 100 mls @ 100 mls/hr IVPB Q8@0500,1300, 2100 [facility] PRN Reason: Protocol Last Admin: 07/25/17 05:23 Dose: 100 mls/hr Dextrose/Sodium Chloride (Dextrose 5%/0.45% Ns 1000 Ml) 1,000 mls @ 50 mls/hr IV .Q20H [facility] Stop: 07/27/17 07:30 Last Admin: 07/25/17 05:21 Dose: Not Given Magnesium Hydroxide (Milk Of Magnesia) 30 ml PO DAILY PRN PRN Reason: Constipation Pravastatin Sodium (Pravachol) 20 mg PO HS [facility] Last Admin: 07/24/17 21:23 Dose: 20 mg Fluticasone/Salmeterol (Advair Diskus 250/50) 1 puff IH Q12H [facility] Last Admin: 07/25/17 05:24 Dose: 1 puff - Labs Labs: 07/25/17 06:15 07/25/17 06:15 Assessment and Plan (1) Adjustment disorder Status: Acute (2) UTI (urinary tract infection) Status: Acute (3) ESBL (extended spectrum beta-lactamase) producing bacteria infection Status: Acute (4) Infection due to ESBL-producing Escherichia coli Status: Acute (5) Anemia Status: Acute (6) Dehydration Status: Acute (7) MARIO (acute kidney injury) Status: Acute
[2017-07-25 12:05] LABS: SQUAMOUS EPITHIAL < 1 /hpf (0-5); URINE BILIRUBIN NEGATIVE (NEGATIVE); URINE BLOOD NEGATIVE (NEGATIVE); URINE CLARITY CLEAR (Clear); URINE COLOR STRAW (YELLOW); URINE GLUCOSE (UA) NEG (Normal); URINE LEUKOCYTE ESTERASE NEG Leu/uL (Negative); URINE NITRATE NEGATIVE (NEGATIVE); URINE PROTEIN NEGATIVE (NEGATIVE); URINE UROBILINOGEN 0.2-1.0 mg/dL (0.2-1.0)
--- NOTE | 2017-07-25 13:30 | US ---
PROCEDURE: Ultrasound of the Kidneys HISTORY: Pyelonephritis. COMPARISON: None available. TECHNIQUE: Sonogram of the kidneys. FINDINGS: RIGHT KIDNEY: Measures: 4.9 x 6.6 x 9.5 cm. Normal in size, contour and echogenicity No stone, solid mass lesion or hydronephrosis visualized. LEFT KIDNEY: Measures: 5.3 x 5.5 x 10.1cm. Normal in size, contour and echogenicity. No stone, solid mass lesion or hydronephrosis visualized. Incidental finding(s): Simple cyst midpole region 1.9 x 2 cm OTHER FINDINGS: None. IMPRESSION: No significant or acute findings to account for/ related to the clinical presentation. Additional benign and/or incidental findings described above.
[2017-07-25] MEDS: Pravastatin Sodium 20 MG TAB PO SCH (22:01)
[2017-07-26] MEDS: Dextrose 5%/0.45% NS 1,000 ML IV SCH ×2 (03:18→03:21)
[2017-07-26] MEDS: Meropenem 500 MG in Sodium Chloride 0.9% 100 ML IVPB SCH ×3 (04:56→21:09)
[2017-07-26] MEDS: Fluticasone-Salmeterol 250-50mcg Diskus IH SCH ×2 (07:02→17:16)
--- NOTE | 2017-07-26 08:10 | CP.PCM.PN ---
Subjective - Date & Time of Evaluation Date of Evaluation: 07/26/17 Time of Evaluation: 08:10 - Subjective Subjective: Pt seen resting comfortably at bedside. No events reported overnight. Patient is currently receiving IV antibiotics for ESBL. Denies any chest pain, N/V/F/C Objective - Vital Signs/Intake and Output Vital Signs (last 24 hours): Temp Pulse Resp BP Pulse Ox 97.9 F 63 18 146/78 93 L 07/25/17 23:58 07/25/17 23:58 07/25/17 23:58 07/25/17 23:58 07/25/17 23:58 - Medications Medications: Current Medications Acetaminophen (Tylenol 325mg Tab) 650 mg PO Q6H PRN PRN Reason: Temp >101 Acetaminophen (Tylenol 325mg Tab) 650 mg PO Q6H PRN PRN Reason: Pain, Mild (1-3) Amlodipine Besylate (Norvasc) 10 mg PO DAILY [facility] Last Admin: 07/25/17 09:23 Dose: 10 mg Cholecalciferol (Vitamin D) 2,000 intlu PO DAILY [facility] Last Admin: 07/25/17 09:24 Dose: 2,000 intlu Cyproheptadine HCl (Periactin) 4 mg PO BID [facility] Last Admin: 07/25/17 17:16 Dose: 4 mg Divalproex Sodium (Depakote Sprinkles) 125 mg PO DAILY [facility] Last Admin: 07/25/17 09:24 Dose: 125 mg Docusate Sodium (Colace) 100 mg PO BID [facility] Last Admin: 07/25/17 17:15 Dose: 100 mg Escitalopram Oxalate (Lexapro) 5 mg PO DAILY [facility] Last Admin: 07/25/17 09:23 Dose: 5 mg Famotidine (Pepcid) 20 mg PO HS [facility] Last Admin: 07/25/17 22:01 Dose: 20 mg Ferrous Sulfate (Feosol) 325 mg PO QPM [facility] Last Admin: 07/25/17 17:15 Dose: 325 mg Folic Acid (Folic Acid) 1 mg PO DAILY [facility] Last Admin: 07/25/17 09:24 Dose: 1 mg Heparin Sodium (Porcine) (Heparin) 5,000 units SC Q12 [facility] PRN Reason: Protocol Last Admin: 07/25/17 21:58 Dose: 5,000 units Meropenem 500 mg/ Sodium (Chloride) 100 mls @ 100 mls/hr IVPB Q8@0500,1300, 2100 [facility] PRN Reason: Protocol Last Admin: 07/26/17 04:56 Dose: 100 mls/hr Dextrose/Sodium Chloride (Dextrose 5%/0.45% Ns 1000 Ml) 1,000 mls @ 50 mls/hr IV .Q20H [facility] Stop: 07/27/17 07:30 Last Admin: 07/26/17 03:21 Dose: 50 mls/hr Magnesium Hydroxide (Milk Of Magnesia) 30 ml PO DAILY PRN PRN Reason: Constipation Pravastatin Sodium (Pravachol) 20 mg PO HS [facility] Last Admin: 07/25/17 22:01 Dose: 20 mg Fluticasone/Salmeterol (Advair Diskus 250/50) 1 puff IH Q12H [facility] Last Admin: 07/26/17 07:02 Dose: 1 puff - Labs Labs: 07/25/17 06:15 07/25/17 06:15 - Constitutional Appears: Non-toxic, No Acute Distress - Head Exam Head Exam: ATRAUMATIC, NORMAL INSPECTION - Eye Exam Pupil Exam: PERRL - Respiratory Exam Respiratory Exam: Clear to Ausculation Bilateral, NORMAL BREATHING PATTERN - Cardiovascular Exam Cardiovascular Exam: REGULAR RHYTHM, +S1, +S2 - GI/Abdominal Exam GI & Abdominal Exam: Soft. absent: Tenderness - Neurological Exam Neurological Exam: Alert, Awake, CN II-XII Intact, Oriented x3 Assessment and Plan - Assessment and Plan (Free Text) Assessment: 81 TO F w/ h/o unknown type of dementia had behavioral disturbances most likely secondary to the UTI 1) Delerium secondary to the UTI (improving) - UTI (ESBL) : ID on board. - C/W meropenum - Renal U/S no acute findings noted - Psych consult appreciated - Urology consulted - C/W 1: 1 2) DVT prophylaxis - Heparin PT/OT
[2017-07-26] MEDS: Cholecalciferol 1,000 INTLU TAB PO SCH (09:31)
[2017-07-26] MEDS: Divalproex 125 mg Sprinkle Capsule PO SCH (09:32)
[2017-07-26] MEDS: Pravastatin Sodium 20 MG TAB PO SCH (21:16)
[2017-07-27] MEDS: Dextrose 5%/0.45% NS 1,000 ML IV SCH ×2 (04:52→05:51)
[2017-07-27] MEDS: Meropenem 500 MG in Sodium Chloride 0.9% 100 ML IVPB SCH ×3 (05:52→20:43)
[2017-07-27] MEDS: Fluticasone-Salmeterol 250-50mcg Diskus IH SCH ×2 (05:54→17:02)
--- NOTE | 2017-07-27 07:54 | CP.PCM.PN ---
Subjective - Date & Time of Evaluation Date of Evaluation: 07/27/17 Time of Evaluation: 07:52 - Subjective Subjective: 81 YO F w/ ESBL UTI is seen at bedside doing well resting comfortably. States she slept well last night, and appetite is good. Does not have any complaints at this time. - Denies chest pain, SOB, N/V/D Objective - Vital Signs/Intake and Output Vital Signs (last 24 hours): Temp Pulse Resp BP Pulse Ox 98.2 F 56 L 18 112/68 94 L 07/27/17 01:18 07/27/17 01:18 07/27/17 01:18 07/27/17 01:18 07/27/17 01:18 - Medications Medications: Current Medications Acetaminophen (Tylenol 325mg Tab) 650 mg PO Q6H PRN PRN Reason: Temp >101 Acetaminophen (Tylenol 325mg Tab) 650 mg PO Q6H PRN PRN Reason: Pain, Mild (1-3) Amlodipine Besylate (Norvasc) 10 mg PO DAILY [facility] Last Admin: 07/26/17 09:31 Dose: 10 mg Cholecalciferol (Vitamin D) 2,000 intlu PO DAILY [facility] Last Admin: 07/26/17 09:31 Dose: 2,000 intlu Cyproheptadine HCl (Periactin) 4 mg PO BID [facility] Last Admin: 07/26/17 17:16 Dose: 4 mg Divalproex Sodium (Depakote Sprinkles) 125 mg PO DAILY [facility] Last Admin: 07/26/17 09:32 Dose: 125 mg Docusate Sodium (Colace) 100 mg PO BID [facility] Last Admin: 07/26/17 17:16 Dose: 100 mg Escitalopram Oxalate (Lexapro) 5 mg PO DAILY [facility] Last Admin: 07/26/17 09:31 Dose: 5 mg Famotidine (Pepcid) 20 mg PO HS [facility] Last Admin: 07/26/17 21:16 Dose: 20 mg Ferrous Sulfate (Feosol) 325 mg PO QPM [facility] Last Admin: 07/26/17 17:16 Dose: 325 mg Folic Acid (Folic Acid) 1 mg PO DAILY [facility] Last Admin: 07/26/17 09:32 Dose: 1 mg Heparin Sodium (Porcine) (Heparin) 5,000 units SC Q12 [facility] PRN Reason: Protocol Last Admin: 07/26/17 21:11 Dose: 5,000 units Meropenem 500 mg/ Sodium (Chloride) 100 mls @ 100 mls/hr IVPB Q8@0500,1300, 2100 [facility] PRN Reason: Protocol Last Admin: 07/27/17 05:52 Dose: 100 mls/hr Magnesium Hydroxide (Milk Of Magnesia) 30 ml PO DAILY PRN PRN Reason: Constipation Pravastatin Sodium (Pravachol) 20 mg PO HS [facility] Last Admin: 07/26/17 21:16 Dose: 20 mg Fluticasone/Salmeterol (Advair Diskus 250/50) 1 puff IH Q12H [facility] Last Admin: 07/27/17 05:54 Dose: 1 puff - Labs Labs: 07/25/17 06:15 07/25/17 06:15 - Constitutional Appears: No Acute Distress - Head Exam Head Exam: NORMAL INSPECTION - Eye Exam Eye Exam: Normal appearance - Neck Exam Neck Exam: Normal Inspection - Respiratory Exam Respiratory Exam: Clear to Ausculation Bilateral, NORMAL BREATHING PATTERN. absent: Rhonchi, Wheezes - Cardiovascular Exam Cardiovascular Exam: REGULAR RHYTHM, +S1, +S2 - GI/Abdominal Exam GI & Abdominal Exam: Soft - Extremities Exam Extremities Exam: absent: Calf Tenderness - Neurological Exam Neurological Exam: Alert, Awake, CN II-XII Intact, Oriented x3 - Skin Skin Exam: Normal Color, Warm Assessment and Plan - Assessment and Plan (Free Text) Assessment: 81 TO F w/ h/o unknown type of dementia had behavioral disturbances most likely secondary to the UTI 1) ESBL UTI (improving) - UTI (ESBL) : ID on board. - C/W meropenum - Renal U/S no acute findings noted - Urology consulted 2) DVT prophylaxis - Heparin PT/OT
[2017-07-27] MEDS: Divalproex 125 mg Sprinkle Capsule PO SCH (08:45)
[2017-07-27] MEDS: Cholecalciferol 1,000 INTLU TAB PO SCH (08:45)
--- NOTE | 2017-07-27 14:08 | CP.PCM.PN ---
Subjective - Date & Time of Evaluation Date of Evaluation: 07/27/17 Time of Evaluation: 07:00 - Subjective Subjective: improving afebrile alert Objective - Vital Signs/Intake and Output Vital Signs (last 24 hours): Temp Pulse Resp BP Pulse Ox 98.3 F 61 20 158/69 H 93 L 07/27/17 08:07 07/27/17 08:45 07/27/17 08:07 07/27/17 08:45 07/27/17 08:07 - Medications Medications: Current Medications Acetaminophen (Tylenol 325mg Tab) 650 mg PO Q6H PRN PRN Reason: Temp >101 Acetaminophen (Tylenol 325mg Tab) 650 mg PO Q6H PRN PRN Reason: Pain, Mild (1-3) Amlodipine Besylate (Norvasc) 10 mg PO DAILY [facility] Last Admin: 07/27/17 08:45 Dose: 10 mg Cholecalciferol (Vitamin D) 2,000 intlu PO DAILY [facility] Last Admin: 07/27/17 08:45 Dose: 2,000 intlu Cyproheptadine HCl (Periactin) 4 mg PO BID [facility] Last Admin: 07/27/17 08:44 Dose: 4 mg Divalproex Sodium (Depakote Sprinkles) 125 mg PO DAILY [facility] Last Admin: 07/27/17 08:45 Dose: 125 mg Docusate Sodium (Colace) 100 mg PO BID [facility] Last Admin: 07/27/17 08:45 Dose: 100 mg Escitalopram Oxalate (Lexapro) 5 mg PO DAILY [facility] Last Admin: 07/27/17 08:45 Dose: 5 mg Famotidine (Pepcid) 20 mg PO HS [facility] Last Admin: 07/26/17 21:16 Dose: 20 mg Ferrous Sulfate (Feosol) 325 mg PO QPM [facility] Last Admin: 07/26/17 17:16 Dose: 325 mg Folic Acid (Folic Acid) 1 mg PO DAILY [facility] Last Admin: 07/27/17 08:45 Dose: 1 mg Heparin Sodium (Porcine) (Heparin) 5,000 units SC Q12 [facility] PRN Reason: Protocol Last Admin: 07/27/17 08:46 Dose: 5,000 units Meropenem 500 mg/ Sodium (Chloride) 100 mls @ 100 mls/hr IVPB Q8@0500,1300, 2100 [facility] PRN Reason: Protocol Last Admin: 07/27/17 12:04 Dose: 100 mls/hr Magnesium Hydroxide (Milk Of Magnesia) 30 ml PO DAILY PRN PRN Reason: Constipation Pravastatin Sodium (Pravachol) 20 mg PO HS [facility] Last Admin: 07/26/17 21:16 Dose: 20 mg Fluticasone/Salmeterol (Advair Diskus 250/50) 1 puff IH Q12H [facility] Last Admin: 07/27/17 05:54 Dose: 1 puff - Labs Labs: 07/25/17 06:15 07/25/17 06:15 - Constitutional Appears: Well - Head Exam Head Exam: ATRAUMATIC, NORMAL INSPECTION, NORMOCEPHALIC - Eye Exam Eye Exam: EOMI, Normal appearance, PERRL Pupil Exam: NORMAL ACCOMODATION, PERRL - ENT Exam ENT Exam: Mucous Membranes Moist, Normal Exam - Neck Exam Neck Exam: Full ROM, Normal Inspection. absent: Lymphadenopathy - Respiratory Exam Respiratory Exam: Clear to Ausculation Bilateral, NORMAL BREATHING PATTERN - Cardiovascular Exam Cardiovascular Exam: REGULAR RHYTHM, +S1, +S2. absent: Murmur - GI/Abdominal Exam GI & Abdominal Exam: Soft, Normal Bowel Sounds. absent: Tenderness - Rectal Exam Rectal Exam: NORMAL INSPECTION - Exam Exam: Circumcision, NORMAL INSPECTION External exam: NORMAL EXTERNAL EXAM Speculum exam: NORMAL SPECULUM EXAM Bimanual exam: NORMAL BIMANUAL EXAM - Extremities Exam Extremities Exam: Full ROM, Normal Capillary Refill, Normal Inspection. absent : Joint Swelling, Pedal Edema - Back Exam Back Exam: NORMAL INSPECTION - Neurological Exam Neurological Exam: Alert, Awake, CN II-XII Intact, Normal Gait, Oriented x3 - Psychiatric Exam Psychiatric exam: Normal Affect, Normal Mood - Skin Skin Exam: Dry, Intact, Normal Color, Warm Assessment and Plan (1) Adjustment disorder Status: Acute (2) UTI (urinary tract infection) Status: Acute (3) ESBL (extended spectrum beta-lactamase) producing bacteria infection Status: Acute (4) Infection due to ESBL-producing Escherichia coli Status: Acute (5) Anemia Status: Acute (6) Dehydration Status: Acute (7) MARIO (acute kidney injury) Status: Acute
[2017-07-27] MEDS: Pravastatin Sodium 20 MG TAB PO SCH (22:19)
[2017-07-28] MEDS: Fluticasone-Salmeterol 250-50mcg Diskus IH SCH ×2 (05:07→17:23)
[2017-07-28] MEDS: Meropenem 500 MG in Sodium Chloride 0.9% 100 ML IVPB SCH ×3 (05:08→22:15)
[2017-07-28 06:37] LABS: HEMOGLOBIN 12.8 g/dL (12.0-16.0); MEAN CELL VOLUME 100.6 fl (81.0-99.0); MEAN CORPUSCULAR HEMOGLOBIN 33.1 pg (27.0-31.0); MEAN CORPUSCULAR HGB CONC 32.9 g/dL (33.0-37.0); RBC 3.86 Mil/uL (3.80-5.20); RED CELL DISTRIBUTION WIDTH 16.1 % (11.5-14.5); WHITE BLOOD COUNT 6.7 K/uL (4.8-10.8)
[2017-07-28 07:29] LABS: CALCIUM 9.8 mg/dL (8.4-10.2)
--- NOTE | 2017-07-28 08:19 | CON ---
This is an 81-year-old lady admitted with evidence of sepsis. The patient was treated with antibiotics given meropenem, organism was E. coli. Renal ultrasound revealed no evidence of pathology. The patient is being treated as of 07/25/2017. After antibiotic therapy, the patient is calm with no evidence of any confusion and is doing well with medication as done. If there is any further problems with recurrent infection, please notify me. We will follow as necessary. Phillip Hester MD
--- NOTE | 2017-07-28 08:33 | CP.PCM.PN ---
Subjective - Date & Time of Evaluation Date of Evaluation: 07/28/17 Time of Evaluation: 08:30 - Subjective Subjective: 81 YO F seen resting comfortably in bed. Pt is currently receiving IV antibiotics for ESBL in contact isolation. No overnight events reported. Denies chest pain, SOB, N/V/D. Objective - Vital Signs/Intake and Output Vital Signs (last 24 hours): Temp Pulse Resp BP Pulse Ox 98.0 F 62 18 116/68 93 L 07/28/17 07:59 07/28/17 07:59 07/28/17 07:59 07/28/17 07:59 07/28/17 07:59 - Medications Medications: Current Medications Acetaminophen (Tylenol 325mg Tab) 650 mg PO Q6H PRN PRN Reason: Temp >101 Acetaminophen (Tylenol 325mg Tab) 650 mg PO Q6H PRN PRN Reason: Pain, Mild (1-3) Amlodipine Besylate (Norvasc) 10 mg PO DAILY [facility] Last Admin: 07/27/17 08:45 Dose: 10 mg Cholecalciferol (Vitamin D) 2,000 intlu PO DAILY [facility] Last Admin: 07/27/17 08:45 Dose: 2,000 intlu Cyproheptadine HCl (Periactin) 4 mg PO BID [facility] Last Admin: 07/27/17 17:03 Dose: 4 mg Divalproex Sodium (Depakote Sprinkles) 125 mg PO DAILY [facility] Last Admin: 07/27/17 08:45 Dose: 125 mg Docusate Sodium (Colace) 100 mg PO BID [facility] Last Admin: 07/27/17 17:02 Dose: 100 mg Escitalopram Oxalate (Lexapro) 5 mg PO DAILY [facility] Last Admin: 07/27/17 08:45 Dose: 5 mg Famotidine (Pepcid) 20 mg PO HS [facility] Last Admin: 07/27/17 22:19 Dose: 20 mg Ferrous Sulfate (Feosol) 325 mg PO QPM [facility] Last Admin: 07/27/17 17:02 Dose: 325 mg Folic Acid (Folic Acid) 1 mg PO DAILY [facility] Last Admin: 07/27/17 08:45 Dose: 1 mg Heparin Sodium (Porcine) (Heparin) 5,000 units SC Q12 [facility] PRN Reason: Protocol Last Admin: 07/27/17 20:48 Dose: 5,000 units Meropenem 500 mg/ Sodium (Chloride) 100 mls @ 100 mls/hr IVPB Q8@0500,1300, 2100 [facility] PRN Reason: Protocol Last Admin: 07/28/17 05:08 Dose: 100 mls/hr Magnesium Hydroxide (Milk Of Magnesia) 30 ml PO DAILY PRN PRN Reason: Constipation Pravastatin Sodium (Pravachol) 20 mg PO HS [facility] Last Admin: 07/27/17 22:19 Dose: 20 mg Fluticasone/Salmeterol (Advair Diskus 250/50) 1 puff IH Q12H [facility] Last Admin: 07/28/17 05:07 Dose: 1 puff - Labs Labs: 07/28/17 05:50 07/28/17 05:50 - Constitutional Appears: No Acute Distress - Head Exam Head Exam: NORMAL INSPECTION - Eye Exam Eye Exam: Normal appearance - ENT Exam ENT Exam: Mucous Membranes Moist - Respiratory Exam Respiratory Exam: Clear to Ausculation Bilateral, NORMAL BREATHING PATTERN. absent: Rhonchi, Wheezes - Cardiovascular Exam Cardiovascular Exam: REGULAR RHYTHM, +S1, +S2 - GI/Abdominal Exam GI & Abdominal Exam: Soft. absent: Tenderness - Extremities Exam Extremities Exam: absent: Calf Tenderness - Neurological Exam Neurological Exam: Alert, Awake, CN II-XII Intact - Skin Skin Exam: Normal Color, Warm Assessment and Plan - Assessment and Plan (Free Text) Assessment: 81 TO F w/ h/o unknown type of dementia had behavioral disturbances most likely secondary to the UTI 1) Sepsis secondary to UTI (improving) - UTI (ESBL) : ID on board. - C/W meropenum - Renal U/S no acute findings noted - Urology consulted: Awaiting urology input 2) MARIO secondary to dehydration (resolving) 2) DVT prophylaxis - Heparin PT/OT
[2017-07-28] MEDS: Divalproex 125 mg Sprinkle Capsule PO SCH (08:56)
[2017-07-28] MEDS: Cholecalciferol 1,000 INTLU TAB PO SCH (09:00)
[2017-07-28 12:35] LABS: ALB/GLOB RATIO 1.1 (1.0-2.1); ALBUMIN 3.8 g/dL (3.5-5.0); ALT/SGPT 17 U/L (9-52); AST/SGOT 15 U/L (14-36); BLOOD UREA NITROGEN 28 mg/dl (7-17); CALCIUM 9.9 mg/dL (8.4-10.2); GFR AFRICAN-AMERICAN 52; GFR NON-AFRICAN AMERICAN 43
--- NOTE | 2017-07-28 13:08 | PQF GENQUE ---
Dr. Suazo, 3 queries as follows: 1. In agreement with the diagnosis of Sepsis? if yes: 2. POA? 3. Etiology? OR: Other explanation of clinical finding OR: Disagree OR: Unable to determine WBC:8.8->6.4->6.1->5.9->6.2 left shift Pulse:117->78->96->83->100->98->72 BUN:40->21 Creatinine:1.9-.1.1 Est GFR ( Amer/Non-Af Amer): /->58.48 urine culture: ec- preethi ID consult: ID: sent from her NH w/ acute agitation in the context of a UTI. 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 she c/o back pain and was found to have ESBL + urine c/s (1) Adjustment disorder Status: Acute (2) UTI (urinary tract infection) Status: Acute (3) ESBL (extended spectrum beta-lactamase) producing bacteria infection Status : Acute (4) Infection due to ESBL-producing Escherichia coli Status: Acute (5) Anemia Status: Acute (6) Dehydration Status: Acute (7) MARIO (acute kidney injury) Status: Acute 07/27: Draft consult Dr. Hester: 81-year-old lady admitted with evidence of sepsis. The patient was treated with antibiotics given meropenem, organism was E. coli. Renal ultrasound revealed no evidence of pathology. The patient isb eing treated as of 07/25/2017. After antibiotic therapy, the patient is calm with no evidence of any confusion and is doing well with medication as done. This form is a permanent part of the medical record Clarification of your documentation is requested to better reflect the severity of illness and intensity of treatment of your patient. Indicators present [] Specify: [] [] Specify: [] [] Specify: [] [] Specify: [] Location in the medical record that reflects the above clinical findings: [] Treatment Provided: [] PHYSICIAN'S RESPONSE Based on your medical judgment of the clinical indicators outlined above please clarify the following: [] Practitioner response [] If unable to determine, please check the box, sign and date. Present On Admission (POA) Indicator: [] Present at the time of admission [] Not present at the time of admission [] Clinically Undetermined In responding to this query, please exercise your independent professional judgment. The fact that a question is asked does not imply that any particular answer is desired or expected. Thank you for your clarification on this documentation. If you have any questions please call. * Thank you, Torrie Marr RN ext. #[phone] MTDD
--- NOTE | 2017-07-28 13:27 | PQF GENQUE ---
Dr. Suazo, 2 queries : 1. In agreement with the diagnosis of Acute Kidney Injury? 2. Cause if known OR: Disagree OR: Clinically unable to determine OR: Unknown BUN:40->21 Creatinine:1.9-.1.1 Est GFR ( Amer/Non-Af Amer): 31/25->58.48 WBC:8.8->6.4->6.1->5.9->6.2 left shift Pulse:117->78->96->83->100->98->72 ER: Clinical Imp.: Dehydration, UTI (urinary tract infection), Altered mental status, MARIO (acute kidney injury) Attending: Non-compliant with meds in the NH, aggressive behavior-urine shows gm neg rods-Admitting Imp.: AMS, Dehydration, UTI, Elevated Cholesterol, Dementia ID consult note and follow up progress notes: diagnoses: 7. MARIO (acute kidney injury 07/27: Draft consult Dr. Hester: 81-year-old lady admitted with evidence of sepsis. The patient was treated with antibiotics given meropenem, organism was E. coli. Renal ultrasound revealed no evidence of pathology. The patient is being treated as of 07/25/2017. After antibiotic therapy, the patient is calm with no evidence of any confusion and is doing well with medication as done. IVF 1000ccs hr. x 500 ccs -> 50 ccs. hr. and IVF discontinued on 07/24/16 This form is a permanent part of the medical record Clarification of your documentation is requested to better reflect the severity of illness and intensity of treatment of your patient. Indicators present [] Specify: [] [] Specify: [] [] Specify: [] [] Specify: [] Location in the medical record that reflects the above clinical findings: [] Treatment Provided: [] PHYSICIAN'S RESPONSE Based on your medical judgment of the clinical indicators outlined above please clarify the following: [] Practitioner response [] If unable to determine, please check the box, sign and date. Present On Admission (POA) Indicator: [] Present at the time of admission [] Not present at the time of admission [] Clinically Undetermined In responding to this query, please exercise your independent professional judgment. The fact that a question is asked does not imply that any particular answer is desired or expected. Thank you for your clarification on this documentation. If you have any questions please call. * Thank you, Torrie Marr RN ext. #[phone] MTDD
[2017-07-28 17:35] LABS: FOLATE > 20.0 ng/mL
[2017-07-28] MEDS: Pravastatin Sodium 20 MG TAB PO SCH (22:16)
[2017-07-29 00:23] VITALS: PULSE 65; O2SAT 94
[2017-07-29] MEDS: Meropenem 500 MG in Sodium Chloride 0.9% 100 ML IVPB SCH ×2 (04:52→12:07)
[2017-07-29] MEDS: Fluticasone-Salmeterol 250-50mcg Diskus IH SCH (05:06)
[2017-07-29 07:58] VITALS: BP 139/76; RESP 18; TEMP 97.7
--- NOTE | 2017-07-29 08:52 | CP.PCM.PN ---
Subjective - Date & Time of Evaluation Date of Evaluation: 07/29/17 Time of Evaluation: 08:50 - Subjective Subjective: Patient seen resting comfortably in bed. States she slept well overnight. Has a good appetite. Denies any chest pain, SOB, N/V/D. Patient denies any burning during urination. Objective - Vital Signs/Intake and Output Vital Signs (last 24 hours): Temp Pulse Resp BP Pulse Ox 97.7 F 65 18 139/76 94 L 07/29/17 07:57 07/29/17 07:57 07/29/17 07:57 07/29/17 07:57 07/29/17 07:57 - Medications Medications: Current Medications Acetaminophen (Tylenol 325mg Tab) 650 mg PO Q6H PRN PRN Reason: Temp >101 Acetaminophen (Tylenol 325mg Tab) 650 mg PO Q6H PRN PRN Reason: Pain, Mild (1-3) Amlodipine Besylate (Norvasc) 10 mg PO DAILY [facility] Last Admin: 07/28/17 08:59 Dose: 10 mg Cholecalciferol (Vitamin D) 2,000 intlu PO DAILY [facility] Last Admin: 07/28/17 09:00 Dose: 2,000 intlu Cyproheptadine HCl (Periactin) 4 mg PO BID [facility] Last Admin: 07/28/17 17:24 Dose: 4 mg Divalproex Sodium (Depakote Sprinkles) 125 mg PO DAILY [facility] Last Admin: 07/28/17 08:56 Dose: 125 mg Docusate Sodium (Colace) 100 mg PO BID [facility] Last Admin: 07/28/17 17:24 Dose: 100 mg Escitalopram Oxalate (Lexapro) 5 mg PO DAILY [facility] Last Admin: 07/28/17 08:58 Dose: 5 mg Famotidine (Pepcid) 20 mg PO HS [facility] Last Admin: 07/28/17 22:16 Dose: 20 mg Ferrous Sulfate (Feosol) 325 mg PO QPM [facility] Last Admin: 07/28/17 17:24 Dose: 325 mg Folic Acid (Folic Acid) 1 mg PO DAILY [facility] Last Admin: 07/28/17 08:57 Dose: 1 mg Heparin Sodium (Porcine) (Heparin) 5,000 units SC Q12 [facility] PRN Reason: Protocol Last Admin: 07/28/17 22:16 Dose: 5,000 units Meropenem 500 mg/ Sodium (Chloride) 100 mls @ 100 mls/hr IVPB Q8@0500,1300, 2100 [facility] PRN Reason: Protocol Last Admin: 07/29/17 04:52 Dose: 100 mls/hr Magnesium Hydroxide (Milk Of Magnesia) 30 ml PO DAILY PRN PRN Reason: Constipation Nicotine (Nicoderm Cq) 1 patch TD DAILY [facility] Last Admin: 07/28/17 15:42 Dose: 1 patch Pravastatin Sodium (Pravachol) 20 mg PO HS [facility] Last Admin: 07/28/17 22:16 Dose: 20 mg Fluticasone/Salmeterol (Advair Diskus 250/50) 1 puff IH Q12H [facility] Last Admin: 07/29/17 05:06 Dose: 1 puff - Labs Labs: 07/28/17 05:50 07/28/17 09:00 - Constitutional Appears: No Acute Distress - Head Exam Head Exam: NORMAL INSPECTION - Eye Exam Eye Exam: Normal appearance - Respiratory Exam Respiratory Exam: Clear to Ausculation Bilateral, NORMAL BREATHING PATTERN. absent: Rhonchi, Wheezes - Cardiovascular Exam Cardiovascular Exam: REGULAR RHYTHM, +S1, +S2 - GI/Abdominal Exam GI & Abdominal Exam: Soft, Normal Bowel Sounds. absent: Tenderness - Extremities Exam Extremities Exam: Normal Inspection - Neurological Exam Neurological Exam: Alert, Awake, CN II-XII Intact, Oriented x3 Assessment and Plan - Assessment and Plan (Free Text) Assessment: 81 TO F w/ h/o unknown type of dementia had behavioral disturbances most likely secondary to the UTI 1) Sepsis secondary to UTI on admission (improving) - UTI (ESBL) : ID on board. - C/W meropenum - Renal U/S no acute findings noted - Urology consulted: Recommends continuing with IV antibiotics 2) MARIO secondary to dehydration on admission (resolving) 2) DVT prophylaxis - Heparin PT/OT
[2017-07-29] MEDS: Cholecalciferol 1,000 INTLU TAB PO SCH (09:34)
[2017-07-29] MEDS: Divalproex 125 mg Sprinkle Capsule PO SCH (09:35)
--- NOTE | 2017-07-29 13:25 | CP.PCM.PN ---
Subjective - Date & Time of Evaluation Date of Evaluation: 07/29/17 Time of Evaluation: 09:00 - Subjective Subjective: afeb awake alert NAD Objective - Vital Signs/Intake and Output Vital Signs (last 24 hours): Temp Pulse Resp BP Pulse Ox 97.7 F 65 18 139/76 94 L 07/29/17 07:57 07/29/17 09:33 07/29/17 07:57 07/29/17 09:33 07/29/17 07:57 - Medications Medications: Current Medications Acetaminophen (Tylenol 325mg Tab) 650 mg PO Q6H PRN PRN Reason: Temp >101 Acetaminophen (Tylenol 325mg Tab) 650 mg PO Q6H PRN PRN Reason: Pain, Mild (1-3) Amlodipine Besylate (Norvasc) 10 mg PO DAILY [facility] Last Admin: 07/29/17 09:33 Dose: 10 mg Cholecalciferol (Vitamin D) 2,000 intlu PO DAILY [facility] Last Admin: 07/29/17 09:34 Dose: 2,000 intlu Cyproheptadine HCl (Periactin) 4 mg PO BID [facility] Last Admin: 07/29/17 09:33 Dose: 4 mg Divalproex Sodium (Depakote Sprinkles) 125 mg PO DAILY [facility] Last Admin: 07/29/17 09:35 Dose: 125 mg Docusate Sodium (Colace) 100 mg PO BID [facility] Last Admin: 07/29/17 09:34 Dose: 100 mg Escitalopram Oxalate (Lexapro) 5 mg PO DAILY [facility] Last Admin: 07/29/17 09:34 Dose: 5 mg Famotidine (Pepcid) 20 mg PO HS [facility] Last Admin: 07/28/17 22:16 Dose: 20 mg Ferrous Sulfate (Feosol) 325 mg PO QPM [facility] Last Admin: 07/28/17 17:24 Dose: 325 mg Folic Acid (Folic Acid) 1 mg PO DAILY [facility] Last Admin: 07/29/17 09:35 Dose: 1 mg Heparin Sodium (Porcine) (Heparin) 5,000 units SC Q12 [facility] PRN Reason: Protocol Last Admin: 07/29/17 09:35 Dose: 5,000 units Meropenem 500 mg/ Sodium (Chloride) 100 mls @ 100 mls/hr IVPB Q8@0500,1300, 2100 [facility] PRN Reason: Protocol Last Admin: 07/29/17 12:07 Dose: 100 mls/hr Magnesium Hydroxide (Milk Of Magnesia) 30 ml PO DAILY PRN PRN Reason: Constipation Nicotine (Nicoderm Cq) 1 patch TD DAILY [facility] Last Admin: 07/29/17 09:34 Dose: 1 patch Pravastatin Sodium (Pravachol) 20 mg PO HS [facility] Last Admin: 07/28/17 22:16 Dose: 20 mg Fluticasone/Salmeterol (Advair Diskus 250/50) 1 puff IH Q12H [facility] Last Admin: 07/29/17 05:06 Dose: 1 puff - Labs Labs: 07/28/17 05:50 07/28/17 09:00 - Constitutional Appears: Well - Head Exam Head Exam: ATRAUMATIC, NORMAL INSPECTION, NORMOCEPHALIC - Eye Exam Eye Exam: EOMI, Normal appearance, PERRL Pupil Exam: NORMAL ACCOMODATION, PERRL - ENT Exam ENT Exam: Mucous Membranes Moist, Normal Exam - Neck Exam Neck Exam: Full ROM, Normal Inspection. absent: Lymphadenopathy - Respiratory Exam Respiratory Exam: Clear to Ausculation Bilateral, NORMAL BREATHING PATTERN - Cardiovascular Exam Cardiovascular Exam: REGULAR RHYTHM, +S1, +S2. absent: Murmur - GI/Abdominal Exam GI & Abdominal Exam: Soft, Normal Bowel Sounds. absent: Tenderness - Rectal Exam Rectal Exam: Deferred - Extremities Exam Extremities Exam: Full ROM, Normal Capillary Refill, Normal Inspection. absent : Joint Swelling, Pedal Edema - Back Exam Back Exam: NORMAL INSPECTION - Neurological Exam Neurological Exam: Alert, Awake, CN II-XII Intact, Normal Gait, Oriented x3 - Psychiatric Exam Psychiatric exam: Normal Affect, Normal Mood - Skin Skin Exam: Dry, Intact, Normal Color, Warm Assessment and Plan (1) Adjustment disorder Status: Acute (2) UTI (urinary tract infection) Status: Acute (3) ESBL (extended spectrum beta-lactamase) producing bacteria infection Status: Acute (4) Infection due to ESBL-producing Escherichia coli Assessment & Plan: cont iv then po rx macrodantin Status: Acute (5) Anemia Status: Acute (6) Dehydration Status: Acute (7) MARIO (acute kidney injury) Status: Acute
== END 2017-07-29 14:41 | DRG 872 ==
LOC: EDBD 15:00 → H.ER 15:00 → H.ERHOLD 22:47 → H.MEDSURG1 07-22 03:15 → OBSVTOIN 07-22 13:27 → H.MEDSURG1 07-25 06:26
PROVIDERS: ADMIT Internal Medicine; ATTEND Internal Medicine
DX: A41.9 Sepsis, unspecified organism (principal); N17.9 Acute kidney failure, unspecified; F03.91 Unspecified dementia, unspecified severity, with behavioral disturbance; E86.0 Dehydration; D64.9 Anemia, unspecified; N39.0 Urinary tract infection, site not specified; B96.20 Unspecified Escherichia coli [E. coli] as the cause of diseases classified elsewhere; Z16.12 Extended spectrum beta lactamase (ESBL) resistance; Z91.14 Patient's other noncompliance with medication regimen; E78.00 Pure hypercholesterolemia, unspecified; I10 Essential (primary) hypertension; F39 Unspecified mood [affective] disorder; F43.20 Adjustment disorder, unspecified; F17.210 Nicotine dependence, cigarettes, uncomplicated